=== PATIENT | male | born 1965 | race Hispanic/Latino ===

== ENCOUNTER 2019-11-11 07:07 | Outpatient (CLI) | payer BC, SELFPAY ==
[2019-11-11 07:52] LABS: Hemoglobin A1C 7.1 % (<5.7)
[2019-11-11 08:01] LABS: Cholesterol 155 mg/dL (0-200); HDL Direct 32 mg/dL; Triglycerides 299 mg/dL (<150)
[2019-11-11 08:12] LABS: LDL Cholesterol Direct 89 mg/dL
== END 2019-11-11 07:08 | disposition home or self-care (01) ==
PROVIDERS: PCP Internal Medicine; Visit Provider Nurse Practitioner
DX: E11.9 Type 2 diabetes mellitus without complications (principal); E78.2 Mixed hyperlipidemia
CPT/HCPCS: 36415; 80061; 83036

== ENCOUNTER 2019-11-13 08:33 | Outpatient (CLI) | payer BC, SELFPAY ==
--- NOTE | ~2019-11-13 | XR_ITS ---
EXAMINATION: XR chest 2V EXAM DATE: 11/13/2019 08:56 INDICATION: Shortness of breath. TECHNIQUE: Frontal and lateral projections of the chest obtained and reviewed. Comparison is made to prior examination from 10/06/2015. FINDINGS: Linear left midlung zone scarring. The lungs are otherwise clear. There are no pleural ef fusions. The cardiomediastinal silhouette is within normal limits. There is no pneumothorax suspect ed. The bones and soft tissues are unremarkable. IMPRESSION: No acute cardiopulmonary findings. Reviewed, dictated and finalized at location A. AND FRAME TECHNICIAN
--- NOTE | 2019-11-13 09:08 | ECG_ITS ---
Measurements Intervals [place] Rate: 67 P: 48 OK: 166 QRS: 38 QRSD: 110 T: 25 QT: 377 QTc: 399 Interpretive Statements SINUS RHYTHM INTRAVENTRICULAR CONDUCTION DELAY BORDERLINE ECG Electronically Signed On 11-13-2019 9:32:25 COD CLERK by Singh Li D.O.
== END 2019-11-13 08:34 | disposition home or self-care (01) ==
LOC: ANHIMG 08:38
PROVIDERS: PCP Internal Medicine; Visit Provider Nurse Practitioner
DX: R06.02 Shortness of breath (principal); R07.9 Chest pain, unspecified; I45.9 Conduction disorder, unspecified
CPT/HCPCS: 71046; 93005

== ENCOUNTER 2019-11-26 12:37 | Outpatient (CLI) | payer BC, SELFPAY ==
--- NOTE | 2019-11-26 12:48 | ECHO_ITS ---
Patient Info Name: Bharat Johnson Age: 54 years : 1965 Gender: Male Ht: 70 in Wt: 200 lbs BSA: 2.14 m2 HR: 78 bpm BP: 132 / 89 mmHg Heart Rhythm: Sinus Rhythm Technical Quality: Good Exam Date: 11/26/2019 1:16 PM Exam Location: [facility] Patient Status: Outpatient Admit Date: 11/26/2019 Staff Ordering Physician: Shea Lawrence NP Payment Collector: Xavier Flores RDCS Attending Provider: Shea Lawrence NP Referring Physician: Melinda SEGURA; Exam Type: CA echo doppler color flow Study Info Indications I45.9 - Conduction disorder, unspecified Complete two-dimensional, color flow and Doppler transthoracic echocardiogram is performed. Strain analysis performed. History/Risk Factors Chest pain. Summary 1. Left ventricular chamber dimension is normal. 2. Left ventricular systolic function is normal, estimated at 60-65%. 3. The left ventricular diastolic function is grade I diastolic dysfunction. 4. E/e' 7 is not elevated. 5. Global longitudinal strain is abnormal at -14.0%. 6. There is mild mitral valve regurgitation. 7. There is mild to moderate tricuspid valve regurgitation. 8. No pulmonary hypertension, estimated pulmonary arterial systolic pressure is 29 mmHg. 9. There is trace pulmonic regurgitation. Left Ventricle E/e' 7 is not elevated. Global longitudinal strain is abnormal at -14.0%. Left ventricular chamber dimension is normal. Left ventricular systolic function is normal, estimated at 60-65%. The left ventricular diastolic function is grade I diastolic dysfunction. Right Ventricle Right ventricular chamber dimension is normal. Right ventricular systolic function is normal. Left Atria Left atrial chamber dimension is normal. Right Atria Right atrial chamber dimension is normal. Aortic Valve The aortic valve is trileaflet. There is no aortic valve stenosis. There is no aortic valve regurgitation. Pulmonic Valve There is trace pulmonic regurgitation. Mitral Valve There is no mitral valve stenosis. There is mild mitral valve regurgitation. Tricuspid Valve There is mild to moderate tricuspid valve regurgitation. No pulmonary hypertension, estimated pulmonary arterial systolic pressure is 29 mmHg. Pericardium/Pleural There is no pericardial effusion. Inferior Vena Cava Normal inferior vena cava with >50% collapse upon inspiration consistent with normal right atrial pressure, 5 mmHg. Aorta The aortic root size at the sinus of Valsalva is normal. Left Ventricular Outflow Tract Name Value Normal LVOT 2D LVOT Diameter 2.1 cm LVOT Doppler LVOT Peak Gradient 3 mmHg LVOT Mean Gradient 2 mmHg LVOT VTI 17 cm LVOT VTI/AV VTI Ratio 0.7 LVOT Stroke Volume 58 ml LVOT CO 4.6 l/min LVOT CI 2.2 l/min/m2 Mitral Valve Name
== END 2019-11-26 12:38 | disposition home or self-care (01) ==
LOC: ANHCARD 12:40
PROVIDERS: PCP Internal Medicine; Visit Provider Nurse Practitioner
DX: I45.9 Conduction disorder, unspecified (principal)
CPT/HCPCS: 93306

== ENCOUNTER 2020-02-06 07:06 | Outpatient (CLI) | payer BC, SELFPAY ==
[2020-02-06 09:50] LABS: Alanine Aminotransferase 29 U/L (4-50); Albumin Level 4.5 g/dL (3.5-5.1); Alkaline Phosphatase 90 U/L (38-126); Aspartate Amino Transferase 44 U/L (17-59); Bilirubin,Total 0.8 mg/dL (0.2-1.3); Blood Urea Nitrogen 18 mg/dL (9-20); Calcium 8.7 mg/dL (8.4-10.2); Carbon Dioxide 28 mmol/L (22-30); Chloride 100 mmol/L (98-107); Cholesterol 142 mg/dL (0-200); Estimated Glomerular Filt Rate > 60; Glucose 156 mg/dL (75-110); HDL Direct 36 mg/dL; Potassium 4.1 mmol/L (3.4-5.0); Sodium 137 mmol/L (137-145); Triglycerides 122 mg/dL (<150)
[2020-02-06 10:02] LABS: LDL Cholesterol Direct 79 mg/dL
[2020-02-06 14:19] LABS: Hemoglobin A1C 7.3 % (<5.7)
== END 2020-02-06 07:07 | disposition home or self-care (01) ==
PROVIDERS: PCP Internal Medicine; Visit Provider Nurse Practitioner
DX: E78.2 Mixed hyperlipidemia (principal); E11.9 Type 2 diabetes mellitus without complications
CPT/HCPCS: 36415; 80053; 80061; 83036

== ENCOUNTER 2020-05-13 06:41 | Outpatient (CLI) | payer BC, SELFPAY ==
[2020-05-13 07:29] LABS: Hemoglobin A1C 7.3 % (<5.7)
[2020-05-13 07:35] LABS: Anion Gap 6 mmol/L (8-16); Blood Urea Nitrogen 21 mg/dL (9-20); Calcium 8.5 mg/dL (8.4-10.2); Carbon Dioxide 30 mmol/L (22-30); Chloride 100 mmol/L (98-107); Estimated Glomerular Filt Rate > 60; Glucose 148 mg/dL (75-110); Potassium 4.2 mmol/L (3.4-5.0); Sodium 136 mmol/L (137-145)
[2020-05-13 07:46] LABS: Creatinine Urine 96.5 mg/dL
[2020-05-13 07:52] LABS: MALB Creatinine Ratio < 6.2 mg/g (0-30); Microalbumin Urine Random < 6.0 mg/L (0-16.7)
== END 2020-05-13 06:42 | disposition home or self-care (01) ==
PROVIDERS: PCP Internal Medicine; Visit Provider Nurse Practitioner
DX: E11.9 Type 2 diabetes mellitus without complications (principal)
CPT/HCPCS: 36415; 80048; 82043; 83036

== ENCOUNTER 2020-08-24 08:16 | Outpatient (CLI) | payer BC, SELFPAY ==
[2020-08-24 09:20] LABS: Hemoglobin A1C 7.2 % (<5.7)
[2020-08-24 09:24] LABS: Alanine Aminotransferase 57 U/L (4-50); Albumin Level 4.2 g/dL (3.5-5.1); Alkaline Phosphatase 100 U/L (38-126); Anion Gap 5 mmol/L (8-16); Aspartate Amino Transferase 64 U/L (17-59); Bilirubin,Total 0.8 mg/dL (0.2-1.3); Blood Urea Nitrogen 18 mg/dL (9-20); Carbon Dioxide 31 mmol/L (22-30); Chloride 100 mmol/L (98-107); Estimated Glomerular Filt Rate > 60; Glucose 182 mg/dL (75-110); Potassium 4.6 mmol/L (3.4-5.0); Sodium 136 mmol/L (137-145)
== END 2020-08-24 08:17 | disposition home or self-care (01) ==
PROVIDERS: PCP Internal Medicine; Visit Provider Clinical Nurse Specialist
DX: E11.9 Type 2 diabetes mellitus without complications (principal)
CPT/HCPCS: 36415; 80053; 83036

== ENCOUNTER 2020-12-15 06:35 | Outpatient (CLI) | payer BC, SELFPAY ==
[2020-12-15 07:52] LABS: Alanine Aminotransferase 38 U/L (4-50); Albumin Level 4.2 g/dL (3.5-5.1); Alkaline Phosphatase 89 U/L (38-126); Anion Gap 6 mmol/L (8-16); Aspartate Amino Transferase 36 U/L (17-59); Bilirubin,Total 0.7 mg/dL (0.2-1.3); Blood Urea Nitrogen 17 mg/dL (9-20); Calcium 8.7 mg/dL (8.4-10.2); Carbon Dioxide 32 mmol/L (22-30); Chloride 102 mmol/L (98-107); Cholesterol 130 mg/dL (0-200); Estimated Glomerular Filt Rate > 60; Glucose 167 mg/dL (75-110); HDL Direct 36 mg/dL; Potassium 3.9 mmol/L (3.4-5.0); Sodium 140 mmol/L (137-145); Triglycerides 174 mg/dL (<150)
[2020-12-15 08:01] LABS: Hemoglobin A1C 7.4 % (<5.7)
[2020-12-15 08:03] LABS: LDL Cholesterol Direct 63 mg/dL
== END 2020-12-15 06:36 | disposition home or self-care (01) ==
PROVIDERS: PCP Internal Medicine; Visit Provider Nurse Practitioner
DX: Z12.5 Encounter for screening for malignant neoplasm of prostate (principal); E11.9 Type 2 diabetes mellitus without complications
CPT/HCPCS: 36415; 80053; 80061; 83036; 84153; G0103

== ENCOUNTER 2021-09-14 07:15 | Outpatient (CLI) | payer BC, SELFPAY ==
[2021-09-14 07:31] LABS: Basophils Absolute Auto 0.1 K/mm3 (0.0-0.1); Basophils Percent Auto 0.8 % (0.2-1.2); Eosinophils Absolute Auto 0.4 K/mm3 (0-0.3); Eosinophils Percent Auto 7.1 % (0-4.4); Hematocrit 48.5 % (42.0-52.0); Hemoglobin 16.5 g/dL (14.0-18.0); Immature Granulocyte Absolute 0.01 K/mm3 (0.00-0.031); Immature Granulocyte Percent A 0.2 % (0-0.5); Lymphocytes Absolute Auto 2.15 K/mm3 (0.9-3.2); Lymphocytes Percent Auto 36.3 % (18.3-44.2); Mean Corpuscular Hemoglobin 32.2 pg (26-34); Mean Corpuscular Volume 94.7 fl (80-100); Mean Platelet Volume 9.2 fl (7.4-10.4); Monocytes Absolute Auto 0.7 K/mm3 (0.1-0.6); Monocytes Percent Auto 11.3 % (2.6-8.5); Neutrophils Absolute Auto 2.6 K/mm3 (1.3-6.7); Neutrophils Percent Auto 44.3 % (45.5-73.1); Platelet Count Result 157 k/mm3 (150-375); Red Blood Count 5.12 M/mm3 (4.6-6.20); Red Cell Distribution Width 11.9 % (11.5-14.5); White Blood Count 5.9 K/mm3 (4.5-10.0)
[2021-09-14 07:48] LABS: Hemoglobin A1C 8.3 % (<5.7)
== END 2021-09-14 07:16 | disposition home or self-care (01) ==
PROVIDERS: PCP Internal Medicine; Visit Provider Nurse Practitioner
DX: E11.9 Type 2 diabetes mellitus without complications (principal)
CPT/HCPCS: 36415; 83036; 85025

== ENCOUNTER 2022-01-03 09:45 | Outpatient (RCR) | payer BC, SELFPAY ==
--- NOTE | 2021-12-01 14:19 | PCPTNOTE ---
Patient called & cancelled scheduled his initial evaluation, after its start time this date due to having to work.
[2021-12-07 14:07] VITALS: BP_SYST 142
--- NOTE | 2021-12-08 10:21 | PTOPEVAL ---
PHYSICAL THERAPY INITIAL EVALUATION. Thank you for referring Bharat Johnson to [facility].? The patient is scheduled to be seen for therapy? 2x/week for 4 weeks. Please review, sign, date and return this plan of care ISIDRO. I agree with and certify that the following plan of care is medically necessary. Referring Physician Date Attending Provider: Shea Lawrence NP *PT Outpatient Evaluation Start: 12/07/21 Evaluation Information Diagnosis pain in R elbow Subjective Information Pt states his shoulder and Query Text:As Reported By Patient/ elbow really hurt. He states Family he cannot completely straighten out his elbow, and has not been able to for the last year or so. Pt states his dislocated his shoulder 10+ years ago and it never got put back in . Pain Assessment Right Shoulder(s) Reported Pain Level 5 Pain Description Sharp Pain Frequency Intermittent Lowest Pain Intensity 3 Greatest Pain Intensity 8 Pain Aggravating Factors Lifting Right Elbow(s) Reported Pain Level 0 Pain Description Shooting,Tightness Pain Frequency Chronic,Intermittent Lowest Pain Intensity 0 Greatest Pain Intensity 7 Pain Aggravating Factors Lifting Other Pain Aggravating Factors throwing Upper Extremity Range of Motion Right Shoulder Flexion - Active 120 Shoulder Flexion - Passive 140 Shoulder Abduction - Active 122 Shoulder Abduction - Passive 142 Shoulder Medial Rotation - Passive 60 Shoulder Medial Rotation - Active T10 Shoulder Lateral Rotation - Passive 60 Shoulder Lateral Rotation - Active T1 Scapular/Shoulder Range of Motion L shoulder flexion - 132 Comments L shoulder abduction -122 L shoulder lateral/medial rotation - T4/T6 Elbow/Forearm Range of Motion Right Elbow Flexion - Active 95 Elbow Flexion - Passive 95 Elbow Extension - Active -40 Elbow/Forearm Range of Motion Comments R elbow ROM 0-145 Upper Extremity Muscle Strength Testing Gross Upper Extremity Strength Comments Painful resisted R IR L shoulder 4+/5 R elbow flexion 3+/5 R abduction 4-/5 R flexion 4-/5 Muscle Length Testing Pectoralis Minor Muscle Length (R) Mild Tightness,(L) Mild Tightness Posture Head/C-Spine Posture Excess Extension,Forward Head Thoracic Spine Posture Flattened Shoulder Posture
--- NOTE | 2022-01-05 09:12 | PCPTNOTE ---
Attending Provider: Shea Lawrence NP Patient:Bharat Johnson Date of :1965 Patient called on 01/04/22 and cancelled his scheduled re-evaluation for 01/05/22 due to his garage being broken. He would not like to reschedule at this time and told the clerical staff he wants to be discharged. Patient?s initial visit was on 12/07/2021 14:00 and he had a total of 8 visits. The goals have been partially met. Thank you for referring this patient to [facility]. Please review, sign, date and return this discharge summary ISIDRO. I have been updated about the patient's current status and I agree with discharge from the above service at this time. Referring Physician Date
== END 2022-01-05 16:11 | disposition home or self-care (01) ==
LOC: ANHPT 09:45
PROVIDERS: PCP Internal Medicine; Visit Provider Nurse Practitioner
DX: M25.521 Pain in right elbow (principal)
CPT/HCPCS: 97110; 97112; 97140; 97161

== ENCOUNTER 2022-03-04 06:37 | Outpatient (CLI) | payer BC, SELFPAY ==
[2022-03-04 07:56] LABS: Basophils Percent Auto 0.9 % (0.2-1.2); Eosinophils Absolute Auto 0.3 K/mm3 (0-0.3); Eosinophils Percent Auto 6.6 % (0-4.4); Hemoglobin 15.3 g/dL (14.0-18.0); Immature Granulocyte Absolute 0.01 K/mm3 (0.00-0.031); Immature Granulocyte Percent A 0.2 % (0-0.5); Lymphocytes Absolute Auto 1.61 K/mm3 (0.9-3.2); Lymphocytes Percent Auto 36.5 % (18.3-44.2); Mean Corpuscular HGB Conc 33.3 g/dl (32-36); Mean Corpuscular Hemoglobin 32.2 pg (26-34); Mean Corpuscular Volume 96.8 fl (80-100); Mean Platelet Volume 9.7 fl (7.4-10.4); Monocytes Absolute Auto 0.6 K/mm3 (0.1-0.6); Monocytes Percent Auto 14.3 % (2.6-8.5); Neutrophils Absolute Auto 1.8 K/mm3 (1.3-6.7); Neutrophils Percent Auto 41.5 % (45.5-73.1); Platelet Count Result 156 k/mm3 (150-375); Red Blood Count 4.75 M/mm3 (4.6-6.20); Red Cell Distribution Width 12.6 % (11.5-14.5); White Blood Count 4.4 K/mm3 (4.5-10.0)
[2022-03-04 08:02] LABS: Alanine Aminotransferase 36 U/L (6-50); Albumin Level 4.4 g/dL (3.5-5.1); Alkaline Phosphatase 98 U/L (38-126); Anion Gap 8 mmol/L (8-16); Aspartate Amino Transferase 36 U/L (17-59); Bilirubin,Total 0.8 mg/dL (0.2-1.3); Blood Urea Nitrogen 17 mg/dL (9-20); Calcium 8.7 mg/dL (8.4-10.2); Carbon Dioxide 29 mmol/L (22-30); Chloride 101 mmol/L (98-107); Cholesterol 138 mg/dL (0-200); Estimated Glomerular Filt Rate > 60; Glucose 160 mg/dL (65-110); HDL Direct 44 mg/dL; Potassium 4.1 mmol/L (3.4-5.0); Sodium 138 mmol/L (137-145); Triglycerides 104 mg/dL (<150)
[2022-03-04 08:13] LABS: LDL Cholesterol Direct 74 mg/dL
[2022-03-04 08:16] LABS: Hemoglobin A1C 7.3 % (<5.7)
[2022-03-04 08:28] LABS: Prostate Specific Antigen 1.4 ng/mL (< OR = 4.0)
== END 2022-03-04 06:38 | disposition home or self-care (01) ==
LOC: ANHLAB 06:39
PROVIDERS: PCP Internal Medicine; Visit Provider Nurse Practitioner
DX: E11.9 Type 2 diabetes mellitus without complications (principal); Z12.5 Encounter for screening for malignant neoplasm of prostate
CPT/HCPCS: 36415; 80053; 80061; 83036; 84153; 85025; G0103

== ENCOUNTER 2022-06-17 06:39 | Outpatient (CLI) | payer BC, SELFPAY ==
[2022-06-17 07:05] LABS: Basophils Percent Auto 0.6 % (0.2-1.2); Eosinophils Absolute Auto 0.2 K/mm3 (0-0.3); Eosinophils Percent Auto 3.6 % (0-4.4); Hematocrit 47.9 % (42.0-52.0); Hemoglobin 15.8 g/dL (14.0-18.0); Lymphocytes Absolute Auto 1.94 K/mm3 (0.9-3.2); Lymphocytes Percent Auto 40.7 % (18.3-44.2); Mean Corpuscular Hemoglobin 32.4 pg (26-34); Mean Corpuscular Volume 98.4 fl (80-100); Mean Platelet Volume 9.2 fl (7.4-10.4); Monocytes Absolute Auto 0.6 K/mm3 (0.1-0.6); Monocytes Percent Auto 12.2 % (2.6-8.5); Neutrophils Absolute Auto 2.1 K/mm3 (1.3-6.7); Neutrophils Percent Auto 42.9 % (45.5-73.1); Platelet Count Result 162 k/mm3 (150-375); Red Blood Count 4.87 M/mm3 (4.6-6.20); Red Cell Distribution Width 12.6 % (11.5-14.5); White Blood Count 4.8 K/mm3 (4.5-10.0)
[2022-06-17 09:54] LABS: Hemoglobin A1C 7.2 % (<5.7)
== END 2022-06-17 06:40 | disposition home or self-care (01) ==
LOC: ANHLAB 06:41
PROVIDERS: PCP Internal Medicine; Visit Provider Nurse Practitioner
DX: E11.9 Type 2 diabetes mellitus without complications (principal)
CPT/HCPCS: 36415; 83036; 85025

== ENCOUNTER 2022-09-22 08:00 | Outpatient (CLI) | payer BC, SELFPAY ==
--- NOTE | 2022-10-13 22:00 | WPDSLEEPSTUD ---
Sleep Study Date of Study: 09/22/22 Ordering Provider: Shea Lawrence NP Interpreting Physician: Zeynep Fernandez MD Sleep Study Type: Split Polysomnogram Height: 1.78 m Weight: 133.81 kg Body Mass Index: 42.3 Neck Circumference (inches): 16 [place]: 1 Reason for Sleep Study Poor quality sleep, frequent awakenings, excessive daytime sleepiness Sleep History Bharat Johnson is a 57-year-old man with poor quality sleep. He can only sleep 4-5 hours at a time. 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 He would like to be able to sleep well for 8 hours. He wakes up throughout the night including the volunteer services assistant hours. He rarely awakens from sleep feeling short of breath. He rarely awakens at night with heartburn, belching or coughing. He rarely snores. His snoring is not loud enough to bother others. He rarely has trouble sleeping with a cold. He does not wake up gasping for breath at night. Does not have breathing problems at night observed by others. He rarely sweats excessively at night. He occasionally notices his heart pounding or beating irregularly at night. He does not fall asleep during the day. He does not fall asleep involuntarily or while driving. He does not have loss of muscle tone with strong emotion. He rarely has daytime difficulties due to excessive sleepiness. He does not feel paralyzed on waking or falling asleep. He constantly has vivid dreamlike scenes on waking or falling asleep. He does not feel afraid to go to sleep. He occasionally has nightmares. He rarely remembers his dreams. He frequently has racing thoughts. He rarely feels sad or depressed. He does not have anxiety. He rarely has muscular tension. He rarely notices parts of his body jerking. He very rarely kicks at night. He frequently has crawling and aching feelings in his legs and leg pain at night. He rarely has morning jaw pain. He rarely grinds his teeth during sleep. He rarely is bothered by pain during the day. He rarely is awakened by pain at night. He he frequently wakes up with sore achy muscles. He occasionally wakes up with pain in the neck and spine. He has palpitations, memory problems and insomnia. Normal bedtime is variable because the patient works 3 different shifts. He usually takes an hour to fall asleep. He is typically waking up 2 or 3 times during his sleep episode. It may take him 30 minutes to fall asleep again. He only gets 5 or 6 hours of sleep on a good night. He sometimes takes naps. A short nap may be refreshing. He feels better in the evening compared to other times of day. Habits: Never smoked tobacco. Caffeine 2 beverages a day. Alcohol 2 beverages but not every day. No recreational substance. [facility] Past Medical History Medical History Acid reflux Erectile dysfunction Essential hypertension Gout Hypercholesterolemia with hyperglyceridemia Overweight Type 2 diabetes mellitus without complication Family History Family History Father Transient ischemic attack (TIA) Social History Social History Smoking status: Never smoker Alcohol intake: current Alcohol use details: occasional Medications Home Medications Medication Instructions Recorded Confirmed Type blood-glucose meter (QuickflixTouch #1 ea 03/23/21 03/09/22 Rx Ultra2 Meter kit) lisinopril 5 mg tablet 5 mg PO DAILY #90 tabs 12/15/21 03/09/22 Rx simvastatin 20 mg tablet 20 mg PO DAILY #90 tabs 12/15/21 03/09/22 Rx metformin 500 mg tablet 2,500 mg PO DAILY #450 tabs 01/10/22 03/09/22 Rx blood sugar diagnostic (QuickflixTouch #100 strips 02/24/22 03/09/22 Rx Ultra Test strips) tadalafil 20 mg tablet See Rx Instructions .Route 05/06/22 Rx .COMPLEX #30 tabs allopurinol 100 mg tablet See Rx Instructions .Route 06/27/22 Rx .COMPLEX #90 tabs meloxicam 7.5 mg tablet See Rx
[2022-10-13 22:48] VITALS: BMI 42.3
== END 2022-09-23 07:02 | disposition home or self-care (01) ==
LOC: ANHCSM 08:01
PROVIDERS: PCP Internal Medicine; Visit Provider Nurse Practitioner
DX: G47.10 Hypersomnia, unspecified (principal); G47.33 Obstructive sleep apnea (adult) (pediatric); G25.81 Restless legs syndrome
CPT/HCPCS: 95811

== ENCOUNTER 2022-12-20 13:44 | Outpatient (CLI) | payer BC, SELFPAY ==
[2022-12-20 14:43] LABS: Basophils Percent Auto 0.7 % (0.2-1.2); Eosinophils Absolute Auto 0.1 K/mm3 (0-0.3); Eosinophils Percent Auto 2.2 % (0-4.4); Hematocrit 47.4 % (42.0-52.0); Hemoglobin 15.9 g/dL (14.0-18.0); Immature Granulocyte Absolute 0.01 K/mm3 (0.00-0.031); Immature Granulocyte Percent A 0.2 % (0-0.5); Lymphocytes Percent Auto 35.4 % (18.3-44.2); Mean Corpuscular HGB Conc 33.5 g/dl (32-36); Mean Corpuscular Hemoglobin 32.3 pg (26-34); Mean Corpuscular Volume 96.1 fl (80-100); Mean Platelet Volume 9.6 fl (7.4-10.4); Monocytes Absolute Auto 0.5 K/mm3 (0.1-0.6); Monocytes Percent Auto 11.5 % (2.6-8.5); Neutrophils Absolute Auto 2.3 K/mm3 (1.3-6.7); Platelet Count Result 165 k/mm3 (150-375); Red Blood Count 4.93 M/mm3 (4.6-6.20); Red Cell Distribution Width 11.9 % (11.5-14.5); White Blood Count 4.5 K/mm3 (4.5-10.0)
[2022-12-20 15:00] LABS: LDL Cholesterol Direct 75 mg/dL
[2022-12-20 15:05] LABS: Albumin Level 4.8 g/dL (3.5-5.1)
[2022-12-20 15:08] LABS: Alanine Aminotransferase 47 U/L (6-50); Alkaline Phosphatase 94 U/L (38-126); Anion Gap 9 mmol/L (8-16); Aspartate Amino Transferase 44 U/L (17-59); Bilirubin,Total 0.7 mg/dL (0.2-1.3); Blood Urea Nitrogen 20 mg/dL (9-20); Carbon Dioxide 30 mmol/L (22-30); Chloride 97 mmol/L (98-107); Cholesterol 196 mg/dL (0-200); Estimated Glomerular Filt Rate > 60; Glucose 154 mg/dL (65-110); Potassium 4.5 mmol/L (3.4-5.0); Sodium 136 mmol/L (137-145)
[2022-12-20 15:13] LABS: Triglycerides 650 mg/dL (<150)
[2022-12-20 15:20] LABS: Prostate Specific Antigen 1.3 ng/mL (< OR = 4.0)
[2022-12-20 16:25] LABS: Hemoglobin A1C 7.4 % (<5.7)
== END 2022-12-20 13:45 | disposition home or self-care (01) ==
LOC: ANHLAB 13:46
PROVIDERS: PCP Internal Medicine; Visit Provider Nurse Practitioner
DX: E11.9 Type 2 diabetes mellitus without complications (principal); Z12.5 Encounter for screening for malignant neoplasm of prostate
CPT/HCPCS: 36415; 80053; 80061; 83036; 84153; 85025; G0103

== ENCOUNTER 2023-06-23 14:12 | Outpatient (CLI) | payer BC, SELFPAY ==
[2023-06-23 15:31] LABS: Cholesterol 145 mg/dL (0-200); HDL Direct 33 mg/dL; LDL Cholesterol Direct 77 mg/dL; Triglycerides 241 mg/dL (<150)
[2023-06-23 16:15] LABS: Hemoglobin A1C 6.9 % (<5.7)
== END 2023-06-23 14:13 | disposition home or self-care (01) ==
LOC: ANHLAB 14:13
PROVIDERS: PCP Internal Medicine; Visit Provider Nurse Practitioner
DX: G25.81 Restless legs syndrome (principal); E11.9 Type 2 diabetes mellitus without complications
CPT/HCPCS: 36415; 80061; 82728; 83036

== ENCOUNTER 2023-09-22 03:38 | Day surgery (SDC) | payer BC, SELFPAY ==
[2023-09-12 15:25] VITALS: BMI 27.5
--- NOTE | 2023-09-20 09:26 | SUR.PREOP ---
Patient called regarding upcoming procedure. Reviewed preop instructions, appointment times, and procedure prep.
--- NOTE | 2023-09-21 16:27 | PM.HPGS ---
History of Present Illness History of Present Illness Consent: Risks, benefits, and alternatives have been discussed and questions answered. Patient agrees to proceed with procedure. Chief complaint: neoplasm screening Narrative: Bharat Johnson is a 57 year old male referred for colon cancer screening. He has a history of polyps but on his last colonoscopy 7 years ago he was free of polyps. Review of Systems Review of Systems: All systems reviewed & are unremarkable except as noted in HPI and below PMFSH Past Medical History Medical History Acid reflux Erectile dysfunction Essential hypertension Gout Hypercholesterolemia with hyperglyceridemia Overweight Type 2 diabetes mellitus without complication Family History Family History Father Transient ischemic attack (TIA) Social History Social History Smoking status: Never smoker Alcohol intake: current Drinks per week: 6 Alcohol use details: occasional Substance use type: does not use Living arrangements: with family Spiritual care concerns: No Meds Home Medications and Allergies Home Medications Medication Instructions Recorded Confirmed Type blood-glucose meter (OneTouch #1 ea 03/23/21 12/26/22 Rx Ultra2 Meter kit) blood sugar diagnostic (OneTouch #100 strips 02/24/22 12/26/22 Rx Ultra Test strips) meloxicam 7.5 mg tablet See Rx Instructions .Route 07/25/22 09/12/23 Rx .COMPLEX #90 tabs tadalafil 20 mg tablet See Rx Instructions .Route 03/03/23 09/12/23 Rx .COMPLEX #30 tabs Oral appliance #1 ea 05/17/23 Rx lisinopril 5 mg tablet 5 mg PO DAILY #90 tabs 06/08/23 09/12/23 Rx semaglutide 1 mg/dose (2 mg/1.5 1 mg (0.75 mL) subcut WEEKLY #9 mL 06/26/23 09/12/23 Rx mL) subcutaneous pen injector Allergies Allergy/AdvReac Type Severity Reaction Status Date / Time No Known Allergies Allergy Verified 09/22/23 08:55 Exam Resp: Auscultation: clear to auscultation bilaterally Cardio: Rate: regular rate Rhythm: regular rhythm GI: GI Palp: Yes Soft to palpation and No Tenderness to palpation present (GI) Assessment and Plan Assessment and plan (1) Screening for colon cancer: Code(s): Z12.11 - Encounter for screening for malignant neoplasm of colon Status: Acute Assessment and Plan: Colonoscopy with possible biopsy or polypectomy or cautery or injection of substances.
[2023-09-22 08:56] VITALS: BP 126/96; PULSE 99; RESP 20; TEMP 36.5; O2SAT 99
[2023-09-22] MEDS: LACTATED RINGERS 1,000 ML 150 ML IV CONT (09:08)
[2023-09-22 09:10] LABS: Glucose Point of Care 165 mg/dl (65-105)
--- NOTE | 2023-09-22 09:41 | WPDANESEPPF ---
Anes - Initial Pre Proc Eval Procedure: Operation Date: 09/22/23 10:00 Proposed Procedures p Colonoscopy - Chay Charles MD Date/Time: 09/22/23 09:41 Surgeon: Chay Charles MD Pre Op Diagnosis: neoplasm screening Patient Data Age: 57 Gender: M Height: 1.78 m Weight: 86.5 kg Last Vital Signs Temp 97.7 F 09/22/23 08:56 Pulse 99 09/22/23 08:56 Resp 20 09/22/23 08:56 BP 126/96 H 09/22/23 08:56 Pulse Ox 99 09/22/23 08:56 O2 Del Method Room Air 09/22/23 08:56 Allergies Allergy/AdvReac Type Severity Reaction Status Date / Time No Known Allergies Allergy Verified 09/22/23 08:55 Home Medications Medication Instructions Recorded Confirmed Type blood-glucose meter (OneTouch #1 ea 03/23/21 12/26/22 Rx Ultra2 Meter kit) blood sugar diagnostic (OneTouch #100 strips 02/24/22 12/26/22 Rx Ultra Test strips) meloxicam 7.5 mg tablet See Rx Instructions .Route 07/25/22 09/12/23 Rx .COMPLEX #90 tabs tadalafil 20 mg tablet See Rx Instructions .Route 03/03/23 09/12/23 Rx .COMPLEX #30 tabs Oral appliance #1 ea 05/17/23 Rx lisinopril 5 mg tablet 5 mg PO DAILY #90 tabs 06/08/23 09/12/23 Rx semaglutide 1 mg/dose (2 mg/1.5 1 mg (0.75 mL) subcut WEEKLY #9 mL 06/26/23 09/12/23 Rx mL) subcutaneous pen injector Laboratory Tests 09/22/23 09:00 POC Capillary Glucose 165 H mg/dl (65-105) Patient hx anesthesia problems: none Family hx anesthesia problems: none Results Review: All pre-operative results and documents have been reviewed as part of the pre-operative evaluation. [facility] Past Medical History Medical History Acid reflux Erectile dysfunction Essential hypertension Gout Hypercholesterolemia with hyperglyceridemia Overweight Type 2 diabetes mellitus without complication Family History Family History Father Transient ischemic attack (TIA) Social History Social History Smoking status: Never smoker Alcohol intake: current Drinks per week: 6 Alcohol use details: occasional Substance use type: does not use Living arrangements: with family Spiritual care concerns: No Anes - Eval Final PreProcedure Day of Procedure 09/22/23 09:41 Patient weight: normal Heart: regular rate and rhythm Lungs: clear to auscultation Airway: Mallampati scale class II Neurological: alert and oriented Last oral intake: >/= 8 hours ASA classification: III Emergent: no Anesthetic plan: proceed Anesthesia type and monitoring: general GIVS and standard monitoring Results Review: All pre-operative results and documents have been reviewed as part of the pre-operative evaluation. Informed Consent: The patient's anesthetic plan and its attendant risks and benefits were discussed with the patient/family/POA. Questions were solicited and answers provided to the satisfaction of the patient/family/POA.
[2023-09-22 10:12] VITALS: BP 102/62; PULSE 91; RESP 20; O2SAT 96
[2023-09-22 10:22] VITALS: BP 107/81; PULSE 91; RESP 19; O2SAT 97
[2023-09-22 10:32] VITALS: BP 105/75; PULSE 88; RESP 19; O2SAT 96
== END 2023-09-22 10:38 | disposition home or self-care (01) ==
PROVIDERS: PCP Internal Medicine; Visit Provider Internal Medicine Gastroenterology
PROC: 0DJD8ZZ Inspection of Lower Intestinal Tract, Via Natural or Artificial Opening Endoscopic (ICD-10-PCS; CPT 45378; principal; 2023-09-22 10:00)
DX: Z12.11 Encounter for screening for malignant neoplasm of colon (principal); K64.8 Other hemorrhoids; K57.30 Diverticulosis of large intestine without perforation or abscess without bleeding; I10 Essential (primary) hypertension; E78.2 Mixed hyperlipidemia; E11.9 Type 2 diabetes mellitus without complications; N52.9 Male erectile dysfunction, unspecified; Z79.85 Long-term (current) use of injectable non-insulin antidiabetic drugs; Z86.79 Personal history of other diseases of the circulatory system
CPT/HCPCS: 45378; 82948; J2704; J7120

== ENCOUNTER 2023-12-20 06:56 | Outpatient (CLI) | payer BC, SELFPAY ==
[2023-12-20 07:50] LABS: Basophils Percent Auto 0.9 % (0.2-1.2); Eosinophils Absolute Auto 0.3 K/mm3 (0-0.3); Eosinophils Percent Auto 5.4 % (0-4.4); Hematocrit 45.9 % (42.0-52.0); Hemoglobin 15.6 g/dL (14.0-18.0); Lymphocytes Absolute Auto 1.86 K/mm3 (0.9-3.2); Lymphocytes Percent Auto 40.5 % (18.3-44.2); Mean Corpuscular Hemoglobin 31.8 pg (26-34); Mean Corpuscular Volume 93.7 fl (80-100); Mean Platelet Volume 9.8 fl (7.4-10.4); Monocytes Absolute Auto 0.5 K/mm3 (0.1-0.6); Monocytes Percent Auto 11.3 % (2.6-8.5); Neutrophils Absolute Auto 1.9 K/mm3 (1.3-6.7); Neutrophils Percent Auto 41.9 % (45.5-73.1); Platelet Count Result 164 k/mm3 (150-375); Red Cell Distribution Width 12.1 % (11.5-14.5); White Blood Count 4.6 K/mm3 (4.5-10.0)
[2023-12-20 08:03] LABS: Alanine Aminotransferase 36 U/L (6-50); Albumin Level 4.3 g/dL (3.5-5.1); Alkaline Phosphatase 85 U/L (38-126); Anion Gap 8 mmol/L (4-12); Aspartate Amino Transferase 34 U/L (17-59); Bilirubin,Total 0.7 mg/dL (0.2-1.3); Blood Urea Nitrogen 13 mg/dL (9-20); Calcium 9.3 mg/dL (8.4-10.2); Carbon Dioxide 30 mmol/L (22-30); Chloride 101 mmol/L (98-107); Cholesterol 130 mg/dL (0-200); Estimated Glomerular Filt Rate > 60; Glucose 140 mg/dL (65-110); HDL Direct 28 mg/dL; Potassium 4.4 mmol/L (3.4-5.0); Sodium 139 mmol/L (137-145); Triglycerides 302 mg/dL (<150)
[2023-12-20 08:14] LABS: LDL Cholesterol Direct 65 mg/dL
[2023-12-20 08:32] LABS: Prostate Specific Antigen 1.6 ng/mL (< OR = 4.0)
== END 2023-12-20 06:57 | disposition home or self-care (01) ==
LOC: ANHLAB 06:58
PROVIDERS: PCP Internal Medicine; Visit Provider Nurse Practitioner
DX: E11.59 Type 2 diabetes mellitus with other circulatory complications (principal); E11.69 Type 2 diabetes mellitus with other specified complication; E78.5 Hyperlipidemia, unspecified; I15.2 Hypertension secondary to endocrine disorders; Z12.5 Encounter for screening for malignant neoplasm of prostate
CPT/HCPCS: 36415; 80053; 80061; 83036; 84153; 85025; G0103

== ENCOUNTER 2023-12-25 09:39 | Outpatient (CLI) | payer BC, SELFPAY ==
--- NOTE | ~2023-12-25 | XR_ITS ---
Right Knee Technique: AP, lateral, and sunrise views were obtained. Clinical History: Pain Findings: No fracture or dislocation is seen. Osseous alignment is anatomic. Minimal degenerative spu rring noted. Soft tissues are unremarkable. No joint effusion is seen. Impression: Minimal degenerative spurring. Reviewed, dictated and finalized at location . Impression: Minimal degenerative spurring.
== END 2023-12-25 09:40 ==
PROVIDERS: PCP Internal Medicine; Visit Provider Nurse Practitioner
DX: M25.561 Pain in right knee (principal)
CPT/HCPCS: 73562

== ENCOUNTER 2024-02-22 13:45 | Outpatient (RCR) | payer BC, SELFPAY ==
--- NOTE | 2024-01-22 14:39 | OPREHPOC ---
Outpatient Therapy Plan of Care This is a Multidisciplinary Plan of Care that may contain components documented by all disciplines (PT, OT, and ST.) PT Problem 1 PT Problem #1 Knowledge Deficit PT Goal 1 Goal [place] with HEP Target Visit 4 PT Problem 2 PT Problem #2 Impaired Range of Motion PT Goal 1 Goal Achieve 175 degrees of right shoulder flexion for improved functional reach with ADLs Target Visit 8 PT Goal 2 Goal 155 degrees of shoulder abduction to improve capsular mobility for ADL shoulder positioning Target Visit 8 PT Problem 3 PT Problem #3 Impaired Strength PT Goal 1 Goal Improve R shoulder external rotation strength to 4 +/5 to improve capsular stability with self care Target Visit 8 PT Goal 2 Goal Improve R shoulder flexion strength to 4+/5 to improve functional lifting ability Target Visit 8 PT Problem 4 PT Problem #4 Impaired Range of Motion PT Goal 1 Goal Achieve -10 degrees elbow extension ROM for improved throwing ability for play fetch with dog Target Visit 8 Comment Pending imaging report
--- NOTE | 2024-01-22 14:39 | PTOPEVAL1 ---
Assessment and note entered by Ponce Snell, PT Evaluation Information Assessment Status Evaluation Diagnosis Right elbow pain, shoulder weakness Onset 2+ years Subjective Information Reports that elbow really hurts when he is throwing, pushing, or pulling. Occasionally has pain at night when he has not moved it in a while. He has a history of a right shoulder dislocation. Occasional pain and numbness down into his hand. Patient is Right handed. 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 Reported Pain Level Pain Score 0: Self Report Assessment PT Clinical Summary Patient is showing deficits in gross elbow ROM with firm end feel. This may indicate structural chasidy to further ROM gains, will need to be ruled in/out with imaging. Shoulder showing signs of capsular restriction and weakness likely stemming from history of trauma with shoulder dislocation. Patient will benefit from skilled therapy to address strong side ROM and functional strengthening for functional improvement and gross objective improvement. Plan of Care Interventions Electrical Stimulation,Manual Therapy,Neuro Re- education,Therapeutic Activities,Therapeutic Exercise PT Services Indicated Yes Treatment Frequency and 1-2x/week for 8 visits Duration These treatments will address the objective and functional deficits as defined above. The patient will be advanced safely and appropriately in order for the patient to progress towards his/her prior level of function. Additional exercises will be introduced and as well as a comprehensive home exercise program upon discharge, if needed, ?to ensure carryover of functional gains achieved in the clinic. This treatment plan has been reviewed and agreement upon by the patient.
--- NOTE | 2024-02-01 09:34 | PCPTNOTE ---
pt did not show for today's appt; called and left voicemail reminder for next appt;
--- NOTE | 2024-02-08 14:54 | PCPTNOTE ---
Pt. did not show for his scheduled appointment. He was contacted and stated that his work schedule changed and was unable to attend. Terence Mg, MPT
--- NOTE | 2024-02-22 16:46 | OPREHPOC ---
Outpatient Therapy Plan of Care This is a Multidisciplinary Plan of Care that may contain components documented by all disciplines (PT, OT, and ST.) PT Problem 1 PT Problem #1 Knowledge Deficit PT Goal 1 Goal [place] with HEP Target Visit 4 Progress Met PT Problem 2 PT Problem #2 Impaired Range of Motion PT Goal 1 Goal Achieve 175 degrees of right shoulder flexion for improved functional reach with ADLs Target Visit 8 Progress Partially Met PT Goal 2 Goal 155 degrees of shoulder abduction to improve capsular mobility for ADL shoulder positioning Target Visit 8 Progress Partially Met PT Problem 3 PT Problem #3 Impaired Strength PT Goal 1 Goal Improve R shoulder external rotation strength to 4 +/5 to improve capsular stability with self care Target Visit 8 Progress Partially Met PT Goal 2 Goal Improve R shoulder flexion strength to 4+/5 to improve functional lifting ability Target Visit 8 Progress Partially Met PT Problem 4 PT Problem #4 Impaired Range of Motion PT Goal 1 Goal Achieve -10 degrees elbow extension ROM for improved throwing ability for play fetch with dog Target Visit 8 Progress Not Met Comment Pending imaging report
--- NOTE | 2024-02-23 11:00 | PTOPPROG ---
Assessment and note entered by Ponce Snell, PT Evaluation Information Assessment Status Progress Note Diagnosis Right elbow pain, shoulder weakness Onset 2+ years Subjective Information Reports that he feels he is doing a lot better with shoulder ROM and elbow pain. He had an X-ray scheduled but he has been busy and did not get a chance to get to it. Pans to follow through with it. Patient would like to follow up with x-ray and return to therapy if continued progress can be made pending results. Assessment PT Clinical Summary Patient has seen some progress with shoulder ROM and strength at this time. We saw significant improvement in elbow flexion, but still lacks terminal elbow extension of left elbow. Overall end feel appears very stiff and likely structural in nature. Would be curious to see radiographs to assess structural potential. Patient will benefit from continued skilled therapy to maximize R UE function. Plan of Care Interventions Electrical Stimulation,Manual Therapy,Neuro Re- education,Therapeutic Activities,Therapeutic Exercise PT Services Indicated Yes Treatment Frequency and 2x/week for 6 visits Duration These treatments will address the objective and functional deficits as defined above. The patient will be advanced safely and appropriately in order for the patient to progress towards his/her prior level of function. Additional exercises will be introduced and as well as a comprehensive home exercise program upon discharge, if needed, ?to ensure carryover of functional gains achieved in the clinic. This treatment plan has been reviewed and agreement upon by the patient.
--- NOTE | 2024-05-09 08:51 | PTOPDC ---
Assessment and note entered by Ponce Snell, PT Evaluation Information Assessment Status Discharge - Pt Not Present Diagnosis Right elbow pain, shoulder weakness Onset 2+ years Subjective Information Reports that he feels he is doing a lot better with shoulder ROM and elbow pain. He had an X-ray scheduled but he has been busy and did not get a chance to get to it. Pans to follow through with it. Patient would like to follow up with x-ray and return to therapy if continued progress can be made pending results. Assessment PT Clinical Summary Patient has not returned to therapy since last progress note. Patient to e discharged from skilled therapy. Please refer to last progress note for discharge status. Plan of Care PT Services Indicated D/C to [facility]
== END 2024-04-08 11:22 | disposition home or self-care (01) ==
LOC: ANHPT 13:45
PROVIDERS: PCP Internal Medicine; Visit Provider Nurse Practitioner
DX: M25.9 Joint disorder, unspecified (principal)
CPT/HCPCS: 97035; 97110; 97140; 97161; 99199

== ENCOUNTER 2024-02-22 14:57 | Outpatient (CLI) | payer BC, SELFPAY ==
--- NOTE | ~2024-02-22 | XR_ITS ---
EXAM: XR elbow RT 2V DATE: 02/22/2024 15:07 HISTORY: M25.9 - Joint disorder, unspecified . COMPARISON: 07/24/2013. FINDINGS: Normal mineralization. No fracture or dislocation. No lytic or blastic lesion. Mild joint space narrowing and subchondral sclerosis with moderate osteophytosis at the elbow joint. Triceps ent hesopathy. Small elbow joint effusion. No erosion or periosteal change. Soft tissues within normal li mits. IMPRESSION: Moderate right elbow osteoarthritis. Small elbow joint effusion likely related to the art hritic changes, but can also be seen with occult radial head fractures if there has been history of t rauma. Reviewed, dictated and finalized at location K. IMPRESSION: Moderate right elbow osteoarthritis. Small elbow joint effusion lik luis related to the arthritic changes, but can also be seen with occult radial h ead fractures if there has been history of trauma.
== END 2024-02-22 14:58 ==
LOC: GOSHIMG 14:59
PROVIDERS: PCP Internal Medicine; Visit Provider Nurse Practitioner
DX: M19.021 Primary osteoarthritis, right elbow (principal); M25.421 Effusion, right elbow
CPT/HCPCS: 73070

== ENCOUNTER 2024-06-27 14:49 | Outpatient (CLI) | payer BC, SELFPAY ==
[2024-06-27 15:20] LABS: Alanine Aminotransferase 30 U/L (6-50); Albumin Level 4.8 g/dL (3.5-5.1); Alkaline Phosphatase 74 U/L (38-126); Anion Gap 9 mmol/L (4-12); Aspartate Amino Transferase 36 U/L (17-59); Bilirubin,Total 1.2 mg/dL (0.2-1.3); Blood Urea Nitrogen 22 mg/dL (9-20); Calcium 9.1 mg/dL (8.4-10.2); Carbon Dioxide 28 mmol/L (22-30); Chloride 100 mmol/L (98-107); Cholesterol 148 mg/dL (0-200); Estimated Glomerular Filt Rate > 60; Glucose 130 mg/dL (65-110); HDL Direct 40 mg/dL; Hemoglobin A1C 7.1 % (<5.7); Potassium 4.4 mmol/L (3.4-5.0); Sodium 137 mmol/L (137-145); Triglycerides 192 mg/dL (<150)
[2024-06-27 15:32] LABS: LDL Cholesterol Direct 68 mg/dL
== END 2024-06-27 14:50 | disposition home or self-care (01) ==
PROVIDERS: PCP Internal Medicine; Visit Provider Nurse Practitioner
DX: E11.9 Type 2 diabetes mellitus without complications (principal)
CPT/HCPCS: 36415; 80053; 80061; 83036

== ENCOUNTER 2024-07-03 07:16 | Outpatient (CLI) | payer BC, SELFPAY ==
--- NOTE | ~2024-07-03 | MR_ITS ---
EXAMINATION: MR brain/brain stem wo/w con DATE: 07/03/2024 08:06 INDICATION: Disorder of brain, unspecified. TECHNIQUE: Magnetic resonance imaging (MRI) of the brain and brainstem was performed without and with 18 mL MultiHance intravenous contrast. COMPARISON: None. FINDINGS: There is no intracranial hemorrhage, acute infarction, or abnormal intracranial mass lesion . There is an arachnoid cyst posterior to the cerebellum measuring 3.2 x 2.4 cm with mild mass effect on the cerebellar vermis. The ventricles are normal in size. There is mucosal thickening in the par anasal sinuses. The orbits are normal. The mastoid air cells are normal. IMPRESSION: 1. Arachnoid cyst posterior to the cerebellum, likely not clinically significant. Reviewed, dictated and finalized at location A. IMPRESSION: 1. Arachnoid cyst posterior to the cerebellum, likely not clinically significan amairani
== END 2024-07-03 07:17 | disposition home or self-care (01) ==
PROVIDERS: PCP Internal Medicine; Visit Provider Nurse Practitioner
DX: G93.0 Cerebral cysts (principal)
CPT/HCPCS: 70553; A9577

== ENCOUNTER 2025-01-01 07:21 | Outpatient (CLI) | payer BC, SELFPAY ==
--- OUTSIDE RECORDS SUMMARY | 2025-01-01 07:25 | XMS_ITS | Referral Summary ---
Author Organization [facility] [place] [address] Address [address] [place] [address] Care Team Providers Care Personnel Counselor Name Role Phone Lorenzo Valdez DO Primary Care Provider [phone] Allergies No known active allergies Medications Invokana 100 mg tablet 1 tablet daily 11/11/2019 Active simvastatin (ZOCOR) 20 mg tablet 1 tablet daily 11/13/2019 Active lisinopriL (PRINIVIL,ZESTR [place]) 5 mg tablet 1 tablet daily 12/10/2019 Active metFORMIN (GLUCOPHAGE) 500 mg tablet 5 tablets daily 10/14/2019 Active Active Problems No known active problems Social History Tobacco Use Types Packs/Day Years Used Date Smoking Tobacco: Former Smokeless Tobacco: Never Comments:former smoker quite 1985 Alcohol Use Standard Drinks/Week Comments Never 0 (1 standard drink = 0.6 oz pur e alcohol) AUDIT-C Answer Date Recorded Q1: How often do you have a drink containing alc ohol? 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 Gender Identity Not on file Sexual Orientation Not on file Last Filed Vital Signs Vital Sign Reading Time Taken Comments Blood Pressure 124/80 12/12/2019 4:03 PM CDT Pulse 90 12/12/2019 4:03 PM CDT Temperature - - Respiratory Rate - - Oxygen Saturation 96% 12/12/2019 4:03 PM CDT Inhaled Oxygen Concentration - - Weight 92.8 kg (204 lb 8 oz) 12/12/2019 4:03 PM CDT Height 177.8 cm (5' 10 ) 12/12/2019 4:03 PM CDT Body Mass Index 29.34 12/12/2019 4:03 PM CDT Plan of Treatment Not on file Insurance [employer] [place] Care Teams Personnel Counselor Relationship Specialty Start Date End Date Lorenzo Valdez DO PCP - General 12/31/15
--- OUTSIDE RECORDS SUMMARY | 2025-01-01 07:25 | XMS_ITS | Clinical Summary ---
Author Organization [facility] [place] [address] Address [address] [place] [address] Care Team Providers Care Mate Relief Name Role Phone Lorenzo Valdez DO Primary Care Provider [phone] Allergies No known active allergies Medications Invokana 100 mg tablet 1 tablet daily 11/11/2019 Active simvastatin (ZOCOR) 20 mg tablet 1 tablet daily 11/13/2019 Active lisinopriL (PRINIVIL,ZESTR [place]) 5 mg tablet 1 tablet daily 12/10/2019 Active metFORMIN (GLUCOPHAGE) 500 mg tablet 5 tablets daily 10/14/2019 Active Active Problems No known active problems Medical History Medical History Date Comments Diabetes mellitus (HCC) Chest pain Family History Relation Name Status Comments Brother Alive five brothers g ood health Father heart attack Mother Alive good health Sister Alive 4 sister good h ealth Social History Tobacco Use Types Packs/Day Years [...] on file 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
--- OUTSIDE RECORDS SUMMARY | 2025-01-01 07:25 | XMS_ITS | Clinical Summary ---
Author Organization [facility] Address [address] [place] [address] Care Team Providers Care Paper Machine Backtender Name Role Phone Lorenzo Valdez DO Primary Care Provider [phone] Allergies No known active allergies Social History Tobacco Use Types Packs/Day Years Used Date Smoking Tobacco: Former Cigarettes Smokeless Tobacco: Never Alcohol Use Standard Drinks/Week Comments Yes 0 (1 standard drink = 0.6 oz pur e alcohol) Sex and Gender Information Value Date Recorded Sex Assigned at Not on file Legal Sex Male 12:40 PM CDT Gender Identity Not on file Sexual Orientation Not on file Last Filed Vital Signs Vital Sign Reading Time Taken Comments Blood Pressure 145/97 03/30/2024 12:45 PM CDT Pulse 95 03/30/2024 12:45 PM CDT Temperature 36.3 C (97.4 F) 03/30/2024 12:45 PM CDT Respiratory Rate 17 03/30/2024 12:45 PM CDT Oxygen Saturation 99% 03/30/2024 12:45 PM CDT Inhaled Oxygen Concentration - - Weight 88 kg (194 lb 0.1 oz) 03/30/2024 12:45 PM CDT Height 177.8 cm (5' 10 ) 03/30/2024 12:45 PM CDT Body Mass Index 27.84 03/30/2024 12:45 PM CDT Plan of Treatment Health Maintenance Due Date Last Done Comments Colorectal Cancer Screening Colonoscopy (10 Years) 1965 Annual Physical 1968 Hepatitis C 1983 COVID-19 Vaccine (2023- 5 season) 2024 05/09/2022, 12/18/2020, 11/20/2020 DTaP, Tdap and Td Vaccines ( 2 - Td or Tdap) 05/09/2032 05/09/2022 Zoster Vaccines Completed 11/10/2022, 06/21/2022 Meningococcal B Vaccine Aged Out No l onger eligible based on patient's age to complete this topic Meningococcal Vaccine Aged Out No lisa orlin eligible based on patient's age to complete this topic Pneumococcal Vaccine: Pediatrics (0 to 5 Years) and At-Risk Patients (6 to 64 Years) Aged Out No longer eligible b ased on patient's age to complete this topic RSV Immunizations Under 20 Months Aged Out No longer eligible b ased on patient's age to complete this topic Insurance Care Teams Paper Machine Backtender Relationship Specialty Start Date End Date Lorenzo Valdez DO [address] [facility] [address] [place] [address] PCP - General INTERNAL MEDICINE 03/30/24
[2025-01-01 08:20] LABS: Basophils Percent Auto 0.7 % (0.2-1.2); Eosinophils Absolute Auto 0.2 K/mm3 (0-0.3); Eosinophils Percent Auto 4.8 % (0-4.4); Hematocrit 45.7 % (42.0-52.0); Hemoglobin 15.2 g/dL (14.0-18.0); Lymphocytes Absolute Auto 1.69 K/mm3 (0.9-3.2); Lymphocytes Percent Auto 40.4 % (18.3-44.2); Mean Corpuscular HGB Conc 33.3 g/dl (32-36); Mean Corpuscular Hemoglobin 32.3 pg (26-34); Mean Platelet Volume 9.6 fl (7.4-10.4); Monocytes Absolute Auto 0.6 K/mm3 (0.1-0.6); Monocytes Percent Auto 15.1 % (2.6-8.5); Neutrophils Absolute Auto 1.6 K/mm3 (1.3-6.7); Platelet Count Result 143 k/mm3 (150-375); Red Blood Count 4.71 M/mm3 (4.6-6.20); Red Cell Distribution Width 12.4 % (11.5-14.5); White Blood Count 4.2 K/mm3 (4.5-10.0)
[2025-01-01 08:33] LABS: Alanine Aminotransferase 40 U/L (6-50); Albumin Level 4.2 g/dL (3.5-5.1); Alkaline Phosphatase 70 U/L (38-126); Anion Gap 8 mmol/L (4-12); Aspartate Amino Transferase 43 U/L (17-59); Bilirubin,Total 1.2 mg/dL (0.2-1.3); Blood Urea Nitrogen 14 mg/dL (9-20); Calcium 8.7 mg/dL (8.4-10.2); Carbon Dioxide 29 mmol/L (22-30); Chloride 101 mmol/L (98-107); Cholesterol 111 mg/dL (0-200); Estimated Glomerular Filt Rate > 60; Glucose 141 mg/dL (65-110); HDL Direct 34 mg/dL; Potassium 4.2 mmol/L (3.4-5.0); Sodium 138 mmol/L (137-145); Triglycerides 110 mg/dL (<150)
[2025-01-01 08:44] LABS: LDL Cholesterol Direct 55 mg/dL
[2025-01-01 09:01] LABS: Prostate Specific Antigen 1.7 ng/mL (< OR = 4.0)
[2025-01-01 10:24] LABS: Hemoglobin A1C 6.4 % (<5.7)
[2025-01-01 16:55] LABS: Creatinine Urine 41.8 mg/dL
[2025-01-01 17:31] LABS: MALB Creatinine Ratio < 14.4 mg/g (0-30); Microalbumin Urine Random < 6.0 mg/L (0-16.7)
== END 2025-01-01 07:22 | disposition home or self-care (01) ==
PROVIDERS: PCP Nurse Practitioner; Visit Provider Nurse Practitioner
DX: E11.9 Type 2 diabetes mellitus without complications (principal); Z12.5 Encounter for screening for malignant neoplasm of prostate
CPT/HCPCS: 36415; 80053; 80061; 82043; 83036; 84153; 85025; G0103

== ENCOUNTER 2025-07-30 14:41 | Outpatient (CLI) | payer BC, SELFPAY ==
[2025-07-30 15:21] LABS: Hematocrit 42.2 % (42.0-52.0); Hemoglobin 14.5 g/dL (14.0-18.0); Immature Granulocyte Percent A 0.2 % (0-0.5); Immature Platelet Fraction Pct 2.3 % (0.9-11.2); Lymphocytes Absolute Auto 1.70 K/mm3 (0.9-3.2); Mean Corpuscular HGB Conc 34.4 g/dl (32-36); Mean Corpuscular Hemoglobin 31.9 pg (26-34); Mean Corpuscular Volume 93.0 fl (80-100); Nucleated Red Blood Cells Absolute Auto 0.000 K/mm3 (0.0-0.012); Nucleated Red Blood Cells Perc 0.0 % (0.0-0.2); Platelet Count Result 150 k/mm3 (150-375); Red Blood Count 4.54 M/mm3 (4.6-6.20); White Blood Count 4.3 K/mm3 (4.5-10.0)
[2025-07-30 15:31] LABS: Alanine Aminotransferase 24 U/L (6-50); Albumin Level 4.4 g/dL (3.5-5.1); Alkaline Phosphatase 102 U/L (38-126); Anion Gap 6 mmol/L (4-12); Aspartate Amino Transferase 32 U/L (17-59); Bilirubin,Total 0.6 mg/dL (0.2-1.3); Blood Urea Nitrogen 14 mg/dL (9-20); Calcium 8.5 mg/dL (8.4-10.2); Carbon Dioxide 27 mmol/L (22-30); Chloride 102 mmol/L (98-107); Estimated Glomerular Filt Rate > 60; Glucose 130 mg/dL (65-110); Potassium 4.1 mmol/L (3.4-5.0); Sodium 135 mmol/L (137-145); Total Protein 7.2 g/dL (6.3-8.2)
[2025-07-30 16:34] LABS: MALB Creatinine Ratio 4.1 mg/g (0-30)
[2025-07-30 17:35] LABS: Hemoglobin A1C 6.2 % (<5.7)
--- OUTSIDE RECORDS SUMMARY | 2025-07-31 14:18 | XMS_ITS | Clinical Summary ---
Author Organization [facility] Address [address] [place] [address] Care Team Providers Care Recruitment Intern Name Role Phone Lorenzo Valdez DO Primary Care Provider [phone] Allergies No known active allergies Social History [...] 12:45 PM CDT Height 177.8 cm (5' 10) 03/30/2024 12:45 PM CDT Body Mass Index 27.84 03/30/2024 12:45 PM CDT Plan of Treatment Health Maintenance Due Date Last Done Comments Colorectal Cancer Screening Colonoscopy (10 Years) 1965 Annual Physical 1968 Hepatitis C 1983 Pneumococcal Vaccine: 50+ Years (1 of 1 - PCV) 2015 COVID-19 Vaccine (2024-2 6 season) 2025 05/09/2022, 12/18/2020, 11/20/2020 Influenza Adult (#1) 2025 06/26/2023, 06/21/2022, 07/07/2015 DTaP, Tdap and Td Vaccines ( 2 - Td or Tdap) 05/09/2032 05/09/2022 Zoster Vaccines Completed 11/10/2022, 06/21/2022 Hepatitis A Vaccines Aged Out No long er eligible based on patient's age to complete this topic Meningococcal B Vaccine Aged Out No l onger eligible based on patient's age to complete this topic Meningococcal Vaccine Aged Out No lisa orlin eligible based on patient's age to complete this topic RSV Immunizations Under 20 Months Aged Out No longer eligible b ased on patient's age to complete this topic Insurance Care Teams Recruitment Intern Relationship Specialty Start Date End Date Lorenzo Valdez DO [address] [facility] [address] [place] [address] PCP - General INTERNAL MEDICINE 03/30/24
--- OUTSIDE RECORDS SUMMARY | 2025-07-31 14:18 | XMS_ITS | Clinical Summary ---
Author Organization [facility] [place] [address] Address [address] [place] [address] Care Team Providers Care Painter Rough Name Role Phone Lorenzo Valdez DO Primary Care Provider Allergies No known active allergies Medications Invokana 100 mg tablet 1 tablet daily 11/11/2019 Active simvastatin (ZOCOR) 20 mg tablet 1 tablet daily 11/13/2019 Active lisinopriL (PRINIVIL,ZESTR [place]) 5 mg tablet 1 tablet daily 12/10/2019 Active metFORMIN (GLUCOPHAGE) 500 mg tablet 5 tablets daily 10/14/2019 Active Active Problems No known active problems Medical History Medical History Date Comments Diabetes mellitus Chest pain Family History Relation Name Status [...] on file 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
== END 2025-07-30 14:42 | disposition home or self-care (01) ==
LOC: ANHLAB 14:42
PROVIDERS: PCP Nurse Practitioner; Visit Provider Nurse Practitioner
DX: E11.9 Type 2 diabetes mellitus without complications (principal)
CPT/HCPCS: 36415; 80053; 82043; 83036; 85025; 85055